=== PATIENT | male | born 1960 | race Caucasian/White ===

== ENCOUNTER 2023-01-23 01:06 | Emergency (ER) | payer OTHER ==
[2023-01-23] MEDS ORDERED: HYDROmorphone 1 MG/ML Syringe IM ONE (01:52)
== END 2023-01-23 02:21 | disposition home or self-care (01) ==
LOC: JP.ED 01:06
DX: M54.2 Cervicalgia (principal); Z79.01 Long term (current) use of anticoagulants; Z72.0 Tobacco use
CPT/HCPCS: 96372; 99283; J1170